=== PATIENT | male | born 1955 | race Caucasian/White ===

== ENCOUNTER 2017-10-09 20:13 | Emergency (ER) | payer MEDICAID | END 2017-10-09 23:10 | disposition home or self-care (01) | LOC: FTE 20:13 | DX: E11.621 Type 2 diabetes mellitus with foot ulcer (principal); Z79.82 Long term (current) use of aspirin; Z79.84 Long term (current) use of oral hypoglycemic drugs | CPT/HCPCS: 73630; 73630-LT; 99283-25 ==